=== PATIENT | female | born 1975 | race Caucasian/White ===

== ENCOUNTER 2017-10-21 20:59 | Emergency (ER) | payer OTHER ==
[~2017-10-21] VITALS: Ht 154.9 cm; Wt 80.3 kg
[2017-10-21 21:03] VITALS: BP_SYST 162
--- NOTE | 2017-10-21 21:08 | NUR ---
Patient triaged and placed in waiting room. VSS and patient appears in no acute distress at this time. Accompanied by spouse, awaiting available bed, and MD notified of need for MSE.
--- NOTE | 2017-10-21 23:30 | NUR ---
Patient ambulatory to bed 3 to await MD evaluation.
--- NOTE | 2017-10-21 23:35 | NUR ---
Patient to ER via triage with c/o "migraine headache" x 1 month, patient also c/o tightness around neck x 1 week. Patient denies nausea/vomiting, but does c/o photophobia. Patient is awake, alert and oriented in mild distress, vital signs stable, respirations even and unlabored, skin warm and dry to touch. Awaiting evaluation by ER MD, will continue to observe and assess. Male visitor at bedside.
--- NOTE | 2017-10-21 23:45 | NUR ---
Dr Dorman at bedside to evaluate patient.
[2017-10-22] MEDS ORDERED: SUMAtriptan SUCCINATE 6 MG/0.5 ML VIAL SUBCUT ONE
[2017-10-22 01:40] VITALS: BP_SYST 131
--- NOTE | 2017-10-22 01:40 | NUR ---
Patient given written and verbal discharge instructions and verbalizes understanding. ER MD Dandy Bautista discussed with patient the results and treatment provided. Patient in stable condition. ID arm band removed. Patient educated on pain management and to follow up with PMD. Pain Scale 0/10. Opportunity for questions provided and answered. Medication side effect fact sheet provided.
== END 2017-10-22 01:40 | disposition home or self-care (01) ==
LOC: SED 20:59
DX: G43.909 Migraine, unspecified, not intractable, without status migrainosus (principal); I10 Essential (primary) hypertension; J45.909 Unspecified asthma, uncomplicated; E03.9 Hypothyroidism, unspecified
CPT/HCPCS: 96372; 99283; J3030